=== PATIENT | male | born 1965 | race Caucasian/White ===

== ENCOUNTER 2017-11-25 09:28 | Emergency (ER) | payer OTHER ==
[~2017-11-25] VITALS: Ht 180.3 cm; Wt 108.9 kg
[~2017-11-25 09:28] MED LIST: ALPRAZOLAM1 M2 PO; AUGMENTIN 500-1 EACH PO; AUGMENTIN 875 M1 TAB PO; AUGMENTIN 875-1 EACH PO; COD LIVER OIL1 EAC3 PO; DIAZEPAM10 MG PO; DILAUDID2 M1 PO; DIVALPROEX SOD500 M2 PO; ESCITALOPRAM OX20 MG PO; FLONASE ALLERG9.9 ML NAS; GABAPENTIN300 M2 PO; HUMALOG 100U100 U/ML; HUMALOG 100U100 U/ML SC; HUMALOG100 UNIT/2 SC; JANUMET XR 50-1 EAC1 PO; LANTUS SOL100 UNIT/1 SC; LANTUS SOLOS100 U/ML SC; LANTUS100 U/ML SC; LASIX40 M1 PO; LEVEMIR 10100 UNITS/ SC; LEVOTHYROXINE88 MCG PO; LISINOPRIL10 M1 PO; LISINOPRIL20 MG PO; LOVASTATIN40 M1 PO; LYRICA200 M1 PO; LYRICA75 MG PO; MASON NATURAL325 MG PO; MORPHINE SULFA100 MG PO; MORPHINE SULFAT30 M5 PO; MS CONTIN 100M100 MG PO; MS CONTIN60 MG PO; MULTI-DAY VITA1 EACH PO; NASONEX0.05 MG/Ac NASB; NOVOLOG100 U/ML SC; OMEPRAZOLE40 MG PO; OXYCODONE HCL30 MG PO; OXYCODONE HCL5 M2 PO; OXYCODONE HYDRO10 M1 PO; OXYCONTIN20 MG PO; PAMELOR50 M1 PO; PANTOPRAZOLE SO40 M1 PO; PROAIR HFA8.5 GM INH; SPIRIVA18 MCG INH; SYMBICORT 16010.2 GM INH; TAMIFLU6 MG/ML PO; TRAZODONE HCL50 M1 PO; TYLENOL325 M1 PO; VALIUM 10 MG. T10 MG PO; VITAMIN E400 UNI2 PO; WELLBUTRIN100 M1 PO
--- NOTE | 2017-11-25 11:09 | ED AMS/SEIZURE/WEAK/DIZZY ---
History of Present Illness General Chief Complaint: Dizziness Stated Complaint: BIBA DIZZY Source: patient, old records Exam Limitations: no limitations Vital Signs & Intake/Output Vital Signs & Intake/Output Vital Signs Date Time Temp Pulse Resp B/P B/P Pulse O2 O2 Flow FiO2 Mean Ox Delivery Rate 11/25 1711 81 18 139/78 99 Room Air 11/25 1357 97.8 82 18 143/80 99 Room Air 11/25 1343 98 Room Air 11/25 0951 98.3 105 18 112/73 98 Room Air Allergies Coded Allergies: lactose (UNKNOWN 01/23/16) Reconcile Medications Albuterol Sulfate (Proair Hfa) 8.5 GM HFA.AER.AD 2 PUF INH Q4-6 PRN PRN COPD (Reported) Alprazolam 1 MG TABLET 1 TAB PO BID ANXIETY (Reported) Budesonide/Formoterol Fumarate (Symbicort 160-4.5 Mcg Inhaler) 10.2 GM HFA.AER.AD 2 PUF INH BID copd (Reported) Divalproex Sodium 500 MG TABLET.DR 1 TAB PO BID SEIZURES (Reported) Escitalopram Oxalate 20 MG TABLET 1 TAB PO DAILY MENTAL HEALTH (Reported) Fluticasone Propionate (Flonase Allergy Relief) 9.9 ML SPRAY.SUSP 2 SPRAY MARIANELA DAILY UNKNOWN (Reported) Furosemide (Lasix) 40 MG TABLET 2 TAB PO DAILY WATERPILL (Reported) Gabapentin 300 MG CAPSULE 1 CAP PO TID NERVE PAIN &SEIZURES (Reported) Insulin Glargine,Hum.rec.anlog (Lantus Solostar) 100 UNIT/ML (3 ML) INSULN.PEN 50 UNIT SC BID DIABETES (Reported) Insulin Lispro (Humalog) 100 UNIT/ML VIAL DIABETES (Reported) Levothyroxine Sodium 88 MCG TABLET 1 TAB PO DAILY AC THYROID (Reported) Lisinopril 10 MG TABLET 1 TAB PO DAILY BP (Reported) Lovastatin 40 MG TABLET 1 TAB PO DAILY CHOLESTEROL (Reported) with food Meclizine HCl 25 MG TABLET 1 TAB PO TIDPRN PRN VERTIGO Meclizine HCl 25 MG TABLET 1 TAB PO TIDPRN PRN VERTIGO Nortriptyline HCl (Pamelor) 50 MG CAPSULE 1 CAP PO QPM SLEEP (Reported) Pantoprazole Sodium 40 MG TABLET.DR 1 TAB PO BID GI (Reported) Pregabalin (Lyrica) 200 MG CAPSULE 1 CAP PO BID NEUROPATHY (Reported) Scopolamine (Transderm-Scop) 1 MG/3 DAY PATCH.TD.3 1 PAT TD AD PRN VERTIGO APPLY BEHIND THE EAR EVERY THREE DAYS FOR YOUR SYMPTOMS Scopolamine (Transderm-Scop) 1 MG/3 DAY PATCH.TD.3 1 PAT TD AD PRN VERTIGO APPLY BEHIND THE EAR FOR VERTIGO EVERY THREE DAYS Sitagliptin Phos/Metformin HCl (Janumet XR 50-1,000 MG Tablet) 1 EACH TBMP.24HR 1 TAB PO BID DIABETES (Reported) Tiotropium Dragoon (Spiriva) 18 MCG CAP.W.DEV 1 CAP INH DAILY COPD (Reported) Triage Note: 52 YO MALE TO TRIAGE BY [facility]BU[facility]CE FOR EVAL OF DIZZINESS AND FALLING 3 TIMES THIS AM. REPROTS "I AM VERY DEHYRATED" STATES HE HASNT BEEN EATING/DRINKING. DENIES ANY INJURIES FROM THE FALLS THIS AM. DENIES HEADSTRIKE. BS 153 BY EMS. Triage Nurses Notes Reviewed? yes Onset: Gradual Duration: intermittent Timing: recent history Severity: severe Severity Numbers: 7 HPI: Patient is a 52-year-old male with a past medical history of insulin-dependent diabetes, hypertension hyperlipidemia COPD peptic ulcer disease depression and anxiety and a former IV drug user and hyperthyroidism and which patient states that his medications are usually mailed to him however he just received the medications yesterday which she was out of his medications for the past week, please note that patient does state that last week a similar event happen where patient was in the emergency room and which he did not his medications prior to his presentation in the ER last week where patient was safely discharged home for near falls and presyncope symptoms, patient resents emergency room brought in the ambulance A for concerns of 3 episodes of room spinning and vertigo and lightheaded sensation and presyncope symptoms where no injury has occurred from his falls Patient states that he has had decreased by mouth intake patient can't tolerate by mouth denies any headache blurred vision chest pain arm pain jaw pain nausea vomiting patient can tolerate by mouth patient also states that last week he had a "my dog down" where he is not taken care of himself well enough he states. Denies any SI or HI. Denies any illicit drug use denies any alcohol use (Osmar SALVADOR,Jose C) Past History Travel History Traveled to [place] past 21 day No Medical History Any Pertinent Medical History? 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 MOTHER ([place]). Relation not specified for: No family history of disorders Hx Contributory? No (Jose C Coleman) Review of Systems Review of Systems Constitutional: Reports: see HPI. EENTM: Reports: no symptoms. Respiratory: Reports: no symptoms. Cardiovascular: Reports: no symptoms. GI: Reports: no symptoms. Genitourinary: Reports: no symptoms. Musculoskeletal: Reports: no symptoms. Skin: Reports: no symptoms. Neurological/Psychological: Reports: see HPI. Hematologic/Endocrine: Reports: no symptoms. Immunologic/Allergic: Reports: no symptoms. All Other Systems: Reviewed and Negative (Jose C Coleman) Physical Exam Physical Exam General Appearance: no apparent distress, alert, comfortable Head: atraumatic Eyes: Bilateral: normal appearance, PERRL, EOMI, other (HORIZONTAL NYSTAGMUS). Ears, Nose, Throat: normal pharynx, normal ENT inspection, hearing grossly normal Neck: normal inspection Respiratory: normal breath sounds, chest non-tender, no respiratory distress Cardiovascular: regular rate/rhythm Gastrointestinal: normal bowel sounds, soft, non-tender Extremities: normal range of motion Neurologic/Psych: no motor/sensory deficits, awake, alert, oriented x 3, belt builder II- XII nml as tested Skin: intact, normal color, warm/dry Core Measures ACS in differential dx? No CVA/TIA Diagnosis No Sepsis Present: No Sepsis Focused Exam Completed? No (Jose C Coleman) Progress Differential Diagnosis: arrythmia, alcohol intoxication, anemia, benign positional vertigo, CVA/stroke, dehydration, drug intoxication, encephalitis, electrolyte imbalance, GI bleed, hypoglycemia, hypoxia, intracranial Hem., intracranial mass/tumor, labrynthitis, meningitis, Meniere's disease, migraine AYOUB, multiple sclerosis, pneumonia, postural hypotension, presyncope, post- traumatic vertigo, sepsis, seizure disorder, subarachnoid Hem., UTI/pyelo, vertebrobasilar insuff Plan of Care: Orders Procedure Date/time Status Regular Diet 11/25 D Active LACTIC ACID 11/25 1415 Active URINE DRUG SCREEN FOR ER ONLY 11/25 1257 Complete URINALYSIS 11/25 1257 Complete MAGNESIUM 11/25 1139 Complete LACTIC ACID 11/25 1139 Complete CREATINE PHOSPHOKINASE 11/25 1139 Complete ACETONE 11/25 1139 Complete TROPONIN LEVEL 11/25 0951 Complete ETHANOL 11/25 0951 Complete COMPREHENSIVE METABOLIC PANEL 11/25 0951 Complete CBC WITHOUT DIFFERENTIAL 11/25 0951 Complete EKG 11/25 0951 Active Laboratory Tests 11/25/17 1333: Urine Opiates Screen 465, Methadone Screen 70, Barbiturate Screen < 60, Ur Phencyclidine Scrn < 6.00, Amphetamines Screen < 100, U Benzodiazepines Scrn > 800 H, Urine Cocaine Screen < 50, Urine Cannabis Screen 12.60, Urine Color YEL, Urine Clarity HAZY H, Urine pH 6.0, Ur Specific [place] >= 1.030, Urine Protein 30 H, Urine Ketones TRACE H, Urine Nitrite NEG, Urine Bilirubin NEG@ICTO, Urine Urobilinogen 0.2, Ur Leukocyte Esterase NEG, Ur Microscopic SEDIMENT EXAMINED, Urine RBC RARE, Urine WBC RARE, Ur Epithelial Cells FEW, Urine Bacteria RARE H, Hyaline Casts 15-25 H, Urine Mucus MOD H, Urine Hemoglobin NEG, Urine Glucose NEG 11/25/17 1139: Anion Gap 18 H, Estimated GFR 45 L, BUN/Creatinine Ratio 15.0, Glucose 152 H, Lactic Acid 1.3, Calcium 9.9, Magnesium 1.5 L, Total Bilirubin 0.7, AST 25, ALT 35, Alkaline Phosphatase 62, Creatine Kinase 44 L, Troponin I < 0.01, Total Protein 8.5 H, Albumin 4.7, Globulin 3.8, Albumin/Globulin Ratio 1.2, Serum Alcohol < 10.0, Acetone Level NEGATIVE 11/25/17 1136: CBC w Diff MAN DIFF ORDERED, RBC 4.99, MCV 77.4 L, MCH 25.4 L, MCHC 32.8 L, RDW 20.2 H, MPV 8.4, Gran % 72.3, Lymphocytes % 19.8 L, Monocytes % 5.7, Eosinophils % 1.2, Basophils % 1.0, Absolute Granulocytes 11.9 H, Segmented Neutrophils 76 H, Absolute Lymphocytes 3.3, Lymphocytes 21, Monocytes 3, Absolute Monocytes 0.9 H, Absolute Eosinophils 0.2, Absolute Basophils 0.2, Platelet Estimate ADEQUATE, Normocytic RBCs VERIFIED, Normochromic RBCs VERIFIED 11/25/17 1115: Lactic Acid Cancelled 11/25/17 1108: Magnesium Cancelled, Creatine Kinase Cancelled Patient upon initial presentation was in no apparent distress patient has unremarkable physical exam findings except for horizontal nystagmus there's suspicion of peripheral vertigo patient was administered IV fluids scopolamine and meclizine patient was feeling better at rest however upon ambulation symptoms persisted and patient felt room spinning sensation exacerbated with movements Urinalysis and drug screen shows benzodiazepine No emergent findings of infectious processes however patient does have elevated leukocytosis patient also has concerns of ALISHA Patient after another bolus of fluid. He had significant improvement of his room spinning sensation patient had mild symptoms upon ambulation however had steady gait. Patient states that he has a walker at home Patient also ate a meal and had improvement of symptoms patient normal steady gait upon discharge. I had a long extensive observation with the patient for fall prevention to begin using the walker AND not change positions abruptly or begin to walk abruptly as this may cause patient to fall Diagnostic Imaging: Viewed by Me: CT Scan. Radiology Impression: no acute abnormality, no fracture Initial ED EKG: SINUS TACHYCARDIA 103 BPM, RBBB Prior EKG: unchanged Comments: PATIENT: OLIVER HERNANDEZ JR PRESENT AGE: 52 PATIENT ACCOUNT NO: [id number] : 63 LOCATION: [facility] ORDERING PHYSICIAN: Jose C SALVADOR SERVICE DATE: 11/25/17 EXAM TYPE: CAT - CT HEAD WO IV CONTRAST EXAMINATION: CT HEAD WITHOUT CONTRAST CLINICAL INFORMATION: Dizziness and vertigo. COMPARISON: CT scan of the head 11/21/2017. TECHNIQUE: Contiguous axial imaging was performed from the skull base to vertex without intravenous administration of contrast. DLP: 617.88 mGy-cm FINDINGS: There is no evidence of acute intracranial hemorrhage or territorial infarction. No abnormal mass effect or midline shift is seen. Wilhelm to white matter differentiation is well preserved. No extra-axial fluid collections are identified. There is mild commensurate prominence of ventricles and sulci consistent with mild diffuse volume loss. There is a prominent perivascular space versus a lacunar infarct in the right basal ganglia. Brain parenchymal attenuation elsewhere is within normal limits. There are no acute osseous findings. There are atheromatous calcifications of the cavernous internal carotid arteries bilaterally. The mastoid air cells and visualized portions of the paranasal sinuses are well aerated. IMPRESSION: 1. There are no acute bleeds or territorial infarcts. No masses are demonstrated. 2. There is mild diffuse volume loss. DICTATED BY: Shemar Maurice MD DATE/TIME DICTATED:11/25/17 (Jose C Coleman) Departure Departure Disposition: HOME OR SELF CARE Condition: Stable Clinical Impression Primary Impression: Peripheral vertigo Secondary Impressions: ALISHA (acute kidney injury), Dehydration Referrals: Gretchen CORNEJO,Stoney Desir Rai, MD,Rosa Maria (PCP/Family) Additional Instructions: As discussed ALWAYS USE the walker for fall prevention Begin the prescription of meclizine for symptoms and scopolamine patch for your symptoms. Follow-up this week with ENT DR. PUTNAM. If symptoms worsen return to emergency room. Begin drinking plenty of water for hydration and a well healthy balanced diet. Departure Forms: Customer Survey General Discharge Information Prescriptions: Current Visit Scripts Scopolamine (Transderm-Scop) 1 PAT TD AD PRN VERTIGO #9 PAT APPLY BEHIND THE EAR EVERY THREE DAYS FOR YOUR SYMPTOMS Meclizine HCl 1 TAB PO TIDPRN PRN VERTIGO #21 TAB Scopolamine (Transderm-Scop) 1 PAT TD AD PRN VERTIGO #9 PAT APPLY BEHIND THE EAR FOR VERTIGO EVERY THREE DAYS Meclizine HCl 1 TAB PO TIDPRN PRN VERTIGO #21 TAB (Jose C Coleman) PA/REVOLVING INVENTORY CLERK Co-Sign Statement Statement: ED Attending supervision documentation- [] I saw and evaluated the patient. I have also reviewed all the pertinent lab results and diagnostic results. I agree with the findings and the plan of care as documented in the PA's/REVOLVING INVENTORY CLERK's documentation. [x] I have reviewed the ED Record and agree with the PA's/REVOLVING INVENTORY CLERK's documentation. [] Additions or exceptions (if any) to the PAs/REVOLVING INVENTORY CLERK's note and plan are summarized below: [] (Max Sexton DO)
[2017-11-25 11:59] LABS: ABSOLUTE BASOPHIL COUNT 0.2 /CUMM (0.0-0.2); ABSOLUTE EOSINOPHIL COUNT 0.2 /CUMM (0.0-0.7); ABSOLUTE GRANULOCYTE CT 11.9 /CUMM (1.4-6.5); ABSOLUTE LYMPH COUNT 3.3 /CUMM (1.2-3.4); ABSOLUTE MONOCYTE COUNT 0.9 /CUMM (0.10-0.60); EOSINOPHIL % 1.2 % (0-5); GRANULOCYTE % 72.3 % (42.2-75.2); HEMATOCRIT 38.7 % (42-52); MEAN CORPUSCULAR HGB 25.4 PG (27.0-31.0); MEAN CORPUSCULAR HGB CONC 32.8 G/DL (33.0-37.0); MEAN CORPUSCULAR VOLUME 77.4 FL (80.0-94.0); MEAN PLATELET VOLUME 8.4 FL (7.4-10.4); PLATELET COUNT 327 /CUMM (130-400); RBC DISTRIBUTION WIDTH 20.2 % (11.5-14.5); RED BLOOD CELL CT 4.99 /CUMM (4.70-6.10); WHITE BLOOD CELL COUNT 16.5 /CUMM (4.8-10.8)
--- NOTE | 2017-11-25 12:18 | CT SCAN REPORT ---
EXAMINATION: CT HEAD WITHOUT CONTRAST CLINICAL INFORMATION: Dizziness and vertigo. COMPARISON: CT scan of the head 11/21/2017. TECHNIQUE: Contiguous axial imaging was performed from the skull base to vertex without intravenous administration of contrast. DLP: 617.88 mGy-cm FINDINGS: There is no evidence of acute intracranial hemorrhage or territorial infarction. No abnormal mass effect or midline shift is seen. Wilhelm to white matter differentiation is well preserved. No extra-axial fluid collections are identified. There is mild commensurate prominence of ventricles and sulci consistent with mild diffuse volume loss. There is a prominent perivascular space versus a lacunar infarct in the right basal ganglia. Brain parenchymal attenuation elsewhere is within normal limits. There are no acute osseous findings. There are atheromatous calcifications of the cavernous internal carotid arteries bilaterally. The mastoid air cells and visualized portions of the paranasal sinuses are well aerated. IMPRESSION: 1. There are no acute bleeds or territorial infarcts. No masses are demonstrated. 2. There is mild diffuse volume loss.
[2017-11-25] MEDS ORDERED: MECLIZINE HCL25 MG PO ×2 (14:56→15:01)
[2017-11-25] MEDS ORDERED: TRANSDERM-SCOP1 EAC1 TD ×2 (14:56→15:00)
[2017-11-25 17:11] VITALS: BP 139/78
== END 2017-11-25 17:16 ==
LOC: ERH 09:28
PROVIDERS: Physician Assistant
DX: H81.399 Other peripheral vertigo, unspecified ear (principal); N17.9 Acute kidney failure, unspecified; E86.0 Dehydration
CPT/HCPCS: 80307; 81001; 93005; 93010; G0480